=== PATIENT | female | born 1965 | race Caucasian/White ===

== ENCOUNTER 2017-03-16 11:55 | Outpatient (CLI) | payer BC ==
--- NOTE | 2017-03-20 07:55 | Mammography Report ---
DIGITAL BILATERAL SCREENING MAMMOGRAM: 03/16/2017 CLINICAL HISTORY: A 51-year-old female in for routine screening mammogram. Patient has no family hi story of breast cancer. Patient has no prior breast surgeries. COMPARISON: 09/01/2007, 11/02/2008, 11/15/2009, 11/11/2010, 11/24/2011, 11/19/2012, 11/07/2013, 12/26 TECHNIQUE: Craniocaudad and oblique lateral views of each breast were obtained with [employer] digital mammography. Axillary and exaggerated craniocaudad views were obtained to compliment the examination. FINDINGS: Moderately dense breasts are noted bilaterally especially in the upper outer quadrant of e ach breast. No significant clusters of calcification are seen. No significant masses are noted. No change is se en. IMPRESSION: BREASTS APPEAR RADIOGRAPHICALLY BENIGN. BIRADS CATEGORY 1 - NEGATIVE. RECOMMENDATIONS: Annual bilateral screening mammography. STANDARD QUALIFYING STATEMENTS 1. This examination was reviewed with the aid of Computer-Aided Detection (CAD). 2. A negative or benign imaging report should not delay biopsy if clinically suspicious findings are present. Consider surgical consultation if warranted. More than 5% of cancers are not identified by i idalia. 3. Dense breasts may obscure an underlying neoplasm. JOB #: [id number] EXT JOB #:[id number]
== END 2017-03-16 11:56 | disposition home or self-care (01) ==
LOC: DI.N 11:55
PROVIDERS: ATTEND Family Medicine
DX: Z12.31 Encounter for screening mammogram for malignant neoplasm of breast (principal)
CPT/HCPCS: 77067

== ENCOUNTER 2017-05-15 09:33 | Outpatient (CLI) | payer BC | END 2017-05-15 09:34 | disposition home or self-care (01) | LOC: LAB.WCP 09:33 | PROVIDERS: ATTEND Family Medicine | DX: N39.0 Urinary tract infection, site not specified (principal) | CPT/HCPCS: 87086 ==

== ENCOUNTER 2017-07-06 13:44 | Outpatient (CLI) | payer BC ==
[2017-07-06 19:27] LABS: BILIRUBIN,URINE NEGATIVE (NEGATIVE); PH,URINE 5.5 PH (5.0-7.5)
[2017-07-06 19:37] LABS: UR CULTURE IF IND NOT INDICATED; WBC,URINE 0-3 /HPF (0-5)
== END 2017-07-06 13:45 | disposition home or self-care (01) ==
LOC: LAB.WCP 13:44
PROVIDERS: ATTEND Family Medicine
DX: R10.2 Pelvic and perineal pain (principal)
CPT/HCPCS: 81001; 87086

== ENCOUNTER 2017-07-13 11:02 | Outpatient (CLI) | payer BC ==
--- NOTE | 2017-07-14 13:37 | Ultrasound Report ---
PELVIC ULTRASOUND: 07/13/2017 CLINICAL HISTORY: Irregular menses, history of fibroids. COMPARISON: 08/07/2014. TECHNIQUE: Real time scanning by the glass technician with saved static images were reviewed. Transabdominal approach with global evaluation. Endovaginal scanning for detailed assessment of the uterus and ovaries. FINDINGS: The uterus measures 20 x 11.1 x 15.3 cm, volume of 1776 cubic centimeters. The previous measurements were 14.9 x 10 x 5.5 cm. Multiple fibroids are present. These include a 14.5 x 10.5 x 11.3 cm right- sided complex-appearing fibroid with a central cystic or necrotic component. The previous measurements were 7.1 x 6.4 x 5.7 cm. A left mid body fibroid measures 5.5 x 5 x 5.2 cm, previously 4.7 x 4.4 x 4.4 cm. A left superior fundal partially calcified fibroid measures 6.1 x 3.8 x 6.1 cm, previously 7.2 x 6.9 x 5 cm. The right ovary is not seen. The left ovary measures 3.6 x 2.2 x 2.4 cm, volume of 9.9 cubic centimeters, and contains an 1.8 x 1.8 x 1.3 cm in diameter cyst. No free fluid is present. IMPRESSION: PROGRESSIVE ENLARGEMENT OF A MYOMATOUS UTERUS COMPARED WITH 2013, CURRENT UTERINE VOLUME APPROXIMATELY 1776 [address]ERS. JOB #: [id number] EXT JOB #: [id number] [facility]
== END 2017-07-13 11:03 | disposition home or self-care (01) ==
LOC: DI 11:02
PROVIDERS: ATTEND Family Medicine
DX: R10.2 Pelvic and perineal pain (principal); N85.2 Hypertrophy of uterus; D25.9 Leiomyoma of uterus, unspecified
CPT/HCPCS: 76830; 76856

== ENCOUNTER 2018-03-17 10:14 | Outpatient (CLI) | payer OTHER ==
--- NOTE | 2018-03-18 13:50 | Mammography Report ---
DIGITAL SCREENING MAMMOGRAM: 03/17/2018 CLINICAL INDICATION: A 52-year-old for screening. COMPARISON: 02/2017, 12/2015, 10/2013, 10/2012, 10/2011, 10/2010, 10/2009. TECHNIQUE: Routine CC and MLO projections as well as bilateral laterally exaggerated craniocaudal views were obtained of the breasts. FINDINGS: Scattered fibroglandular tissue is present within the breasts. There are no dominant masses, suspicious microcalcifications, or secondary signs of malignancy. In comparison to the previous studies, there are no significant changes. IMPRESSION: NO MAMMOGRAPHIC EVIDENCE OF MALIGNANCY. NO SIGNIFICANT INTERVAL CHANGES. RECOMMENDATION: Screening mammography is recommended annually. BIRADS CATEGORY 1 - NEGATIVE. STANDARD QUALIFYING STATEMENTS: 1. This examination was reviewed with the aid of Computed-Aided Detection (CAD). 2. A negative or benign imaging report should not delay biopsy if clinically suspicious findings are present. Consider surgical consultation if warranted. More than 5% of cancers are not identified by imaging. 3. Dense breasts may obscure an underlying neoplasm. TD: 03/18/2018 13:41
== END 2018-03-17 10:15 | disposition home or self-care (01) ==
LOC: DI.N 10:14
PROVIDERS: ATTEND Family Medicine
DX: Z12.31 Encounter for screening mammogram for malignant neoplasm of breast (principal)
CPT/HCPCS: 77067

== ENCOUNTER 2018-06-12 21:00 | Emergency (ER) | payer OTHER ==
[2018-06-12 21:17] VITALS: BP 171/80
[2018-06-12] MEDS ORDERED: ACETAMINOPHEN 325 MG TABLET PO STA (21:33)
--- NOTE | 2018-06-12 22:20 | XRAY Report ---
Procedure Date: 06/12/2018 Accession Number: [id number] / [id number] Procedure: XR - Forearm LT CPT Code: FULL RESULT: EXAM: LEFT FOREARM RADIOGRAPHY EXAM DATE: 06/12/2018 10:04 PM. CLINICAL HISTORY: L wrist pain, s/p fall. COMPARISON: None. TECHNIQUE: 2 views. FINDINGS: Bones: There is a mildly comminuted impacted intra-articular fracture involving the distal radius. A nondisplaced fractures also seen involving the tip of the ulnar styloid process. Joints: Normal. No effusions or subluxations in the visualized wrist or elbow joints. Soft Tissues: Normal. No soft tissue swelling. IMPRESSION: Mildly impacted and comminuted intra-articular distal radius fracture. Tip of ulnar styloid process fracture. RADIA
--- NOTE | 2018-06-12 22:26 | XRAY Report ---
Procedure Date: 06/12/2018 Accession Number: [id number] / [id number] Procedure: XR - Wrist 4 View LT CPT Code: FULL RESULT: EXAM: LEFT WRIST RADIOGRAPHY EXAM DATE: 06/12/2018 10:04 PM. CLINICAL HISTORY: L wrist pain, s/p fall. COMPARISON: None. TECHNIQUE: 4 views. FINDINGS: Bones: There is a comminuted fracture involving the articular margins of the distal radius with mild displacement of fracture fragments. No carpal bone fracture. There is a fracture involving the tip of the ulnar styloid process. Joints: Normal. No subluxations. Soft Tissues: Normal. No soft tissue swelling. IMPRESSION: Mildly comminuted and displaced intra-articular distal radial fracture. Tip of ulnar styloid process fracture. RADIA
--- NOTE | 2018-06-12 22:33 | ED Physician Documentation ---
PD HPI UPPER EXT INJURY - Stated complaint Stated Complaint: LT WRIST/ARM PX - Chief complaint Chief Complaint: Ext Problem - History obtained from History obtained from: Patient - History of Present Illness Location: Left, Forearm, Wrist Type of injury: Fall Where injury occurred: Home Timing - onset: How many hours ago (1) Timing - duration: Hours (1) Timing - details: Abrupt onset Pain level max: 6 Pain level now: 5 Improved by: Rest, Ice, Immobilization Worsened by: Moving, Palpating Associated symptoms: Swelling. No: Weakness, Numbness, Tingling, Discolored Contributing factors: No: Anticoagulated, Prior ortho surgery Recently seen: Not recently seen - Additonal information Additional information: Patient states that she tripped and fell. States that she twisted her right ankle and landed. No longer has any pain in the right ankle and is ambulating without difficulty. Still has continued pain in the left wrist. She is right- handed. Patient did not strike her head. No loss of consciousness. Review of Systems Constitutional: denies: Fever Throat: denies: Sore throat Cardiac: denies: Chest pain / pressure GI: denies: Vomiting Musculoskeletal: denies: Neck pain, Back pain Neurologic: denies: Focal weakness, Numbness, Headache, Head injury, LOC PD PAST MEDICAL HISTORY - Past Medical History Past Medical History: No - Past Surgical History Past Surgical History: No - Present Medications Home Medications: Ambulatory Orders Medication Instructions Recorded Confirmed No Known Home Medications [No 06/12/18 06/12/18 Known Home Medications] - Allergies Allergies/Adverse Reactions: Allergies Allergy/AdvReac Type Severity Reaction Status Date / Time codeine Allergy Emesis Verified 06/12/18 21:12 shellfish derived Allergy Anaphylaxis Verified 06/12/18 21:12 - Social History Does the pt smoke?: No Smoking Status: Never smoker Does the pt drink ETOH?: No Does the pt have substance abuse?: No - Immunizations Immunizations are current?: Yes - POLST Patient has POLST: No PD ED PE NORMAL - Vitals Vital signs reviewed: Yes - General General: Alert and oriented X 3, No acute distress - HEENT HEENT: Atraumatic, PERRL, Moist mucous membranes, Pharynx benign - Neck Neck: Supple, no meningeal sign, No bony TTP - Cardiac Cardiac: RRR, No murmur, Strong equal pulses - Respiratory Respiratory: No respiratory distress - Back Back: No spinal TTP - Derm Derm: Warm and dry - Extremities Extremities: Other (Deformity noted at the left wrist. Mild swelling. No snuffbox tenderness. Also has tenderness at the mid forearm. No deformity.) - Neuro Neuro: Alert and oriented X 3 - Psych Psych: Normal mood, Normal affect Results - Vitals Vitals: Vital Signs - 24 hr 06/12/18 21:10 Temperature 36.9 C Heart Rate 86 Respiratory 16 Rate Blood Pressure 171/80 H O2 Saturation 99 Oxygen O2 Source Room air - Rads (name of study) Left wrist x-ray Radiology: Prelim report reviewed, EMP read contemporaneously, See rad report ( Mildly comminuted and displaced intra-articular distal radial fracture. Tip of ulnar styloid process fracture. ) Left forearm x-ray Radiology: Prelim report reviewed, EMP read contemporaneously, See rad report ( Mildly comminuted and displaced intra-articular distal radial fracture. Tip of ulnar styloid process fracture. ) Procedures - Splint (location) L wrist Splint applied by: Physician, Tech Type of splint: Fiberglass, Long arm, Sugar tong Other: Patient tolerated well, No complications, Neurovascular intact, Good alignment, Sling provided PD MEDICAL DECISION MAKING - ED course Complexity details: reviewed results, re-evaluated patient, considered differential, d/w patient, d/w family ED course: Patient with a comminuted left distal radius fracture and an ulnar styloid fracture. Declines any pain medication here for home. Splint applied. We will have her follow-up with orthopedics for further care. Neurovascularly intact. Patient and family counseled regarding signs and symptoms for which I believe and urgent re-evaluation would be necessary. Patient with good understanding of and agreement to plan and is comfortable going home at this time This document was made in part using voice recognition software. While efforts are made to proofread this document, sound alike and grammatical errors may occur. - Sepsis Event Vital Signs: Vital Signs - 24 hr 06/12/18 21:10 Temperature 36.9 C Heart Rate 86 Respiratory 16 Rate Blood Pressure 171/80 H O2 Saturation 99 Oxygen O2 Source Room air Departure - Departure Disposition: 01 Home, Self Care Clinical Impression: Distal radius fracture, left Qualifiers: Encounter type: initial encounter Fracture type: closed Fracture morphology: unspecified fracture morphology Qualified Code(s): S52.502A - Unspecified fracture of the lower end of left radius, initial encounter for closed fracture Condition: Good Instructions: ED Fx Upper Ext Follow-Up: Mini Hinojosa MD [Primary Care Provider] - [facility] [Provider Group] - Within 1 week Comments: You are to follow-up with orthopedics for further evaluation and care. Return if you worsen. Keep the splint on until released by orthopedics. Discharge Date/Time: 06/12/18 22:48
== END 2018-06-12 22:48 | disposition home or self-care (01) ==
LOC: ED 21:00
DX: S52.572A Other intraarticular fracture of lower end of left radius, initial encounter for closed fracture (principal); W01.0XXA Fall on same level from slipping, tripping and stumbling without subsequent striking against object, initial encounter; Y92.009 Unspecified place in unspecified non-institutional (private) residence as the place of occurrence of the external cause
CPT/HCPCS: 29105; 73090; 73110; 99283; A9270

== ENCOUNTER 2020-01-08 07:09 | Outpatient (CLI) | payer OTHER ==
--- NOTE | 2020-01-08 23:29 | Ultrasound Report ---
Reason: LOWER ABD PAIN Procedure Date: 01/08/2020 Accession Number: [id number] / [id number] Procedure: US - Abdomen Complete CPT Code: Final Report FULL RESULT: EXAM: ABDOMEN ULTRASOUND EXAM DATE: 01/08/2020 08:18 AM. CLINICAL HISTORY: LOWER ABD PAIN. COMPARISON: None. TECHNIQUE: Real-time scanning was performed with static images obtained. FINDINGS: Liver: Diffuse steatosis with area of focal fatty sparing. Length is 17.1 cm. Main portal vein flow: Hepatopetal. Gallbladder: No stones, wall thickening, or sonographic Smith's sign. Biliary System: Common bile duct measures 4 mm. No intrahepatic ductal dilatation. Pancreas: The visualized portions are unremarkable. Kidneys: Right: 9.8 cm longitudinally. No contour-deforming mass, shadowing stones, or hydronephrosis. Left: 9.4 cm longitudinally. No contour-deforming mass, shadowing stones, or hydronephrosis. Spleen: 9.5 cm Imaged portions of the aorta and IVC are unremarkable. IMPRESSION: No acute sonographic abnormalities. RADIA
== END 2020-01-08 07:10 | disposition home or self-care (01) ==
LOC: DI 07:09
PROVIDERS: ATTEND Physician Assistant Medical
DX: R10.9 Unspecified abdominal pain (principal)
CPT/HCPCS: 76700

== ENCOUNTER 2021-01-09 15:01 | Outpatient (CLI) | payer OTHER ==
--- NOTE | 2021-01-10 14:17 | Mammography Report ---
BILATERAL DIGITAL SCREENING MAMMOGRAM 3D/2D: 01/09/2021 CLINICAL: Routine screening. Comparison is made to exams dated: 03/17/2018 mammogram, 03/16/2017 mammogram, and 01/23/2016 mammogram - [facility]. There are scattered fibroglandular elements in both breasts. No significant masses, calcifications, or other findings are seen in either breast. There has been no significant interval change. IMPRESSION: NEGATIVE There is no mammographic evidence of malignancy. A 1 year screening mammogram is recommended. This exam was interpreted at Station ID: [id number]. NOTE: For mammograms, a report in lay terms will be sent to the patient. Approximately 15% of breast malignancies will not be visualized mammographically. In the management of a palpable breast mass, a negative mammogram must not discourage biopsy of a clinically suspicious lesion. Electronically Signed By: Mary estrada/penrad:01/09/2021 17:27:47 ACR BI-RADS Category 1: Negative 3341F PARENCHYMAL PATTERN: (A) - The breast(s) demonstrate(s) scattered fibroglandular densities. BI-RADS CATEGORY: (1) - 1 RECOMMENDATION: (ANNUAL) - Recommend routine annual screening mammography. [id number] 1 year screening LATERALITY: (B)
== END 2021-01-09 15:02 | disposition home or self-care (01) ==
LOC: DI.N 15:01
PROVIDERS: ATTEND Physician Assistant Medical
DX: Z12.31 Encounter for screening mammogram for malignant neoplasm of breast (principal)

== ENCOUNTER 2022-10-15 13:36 | Outpatient (CLI) | payer OTHER ==
--- NOTE | 2022-10-16 11:57 | Mammography Report ---
BILATERAL DIGITAL SCREENING MAMMOGRAM 3D/2D: 10/15/2022 CLINICAL: Routine screening. Comparison is made to exams dated: 01/09/2021 mammogram, 03/17/2018 mammogram, and 03/16/2017 mammogram - [facility]. There are scattered areas of fibroglandular density in both breasts (category b / 25%-50% glandular t issue). No significant masses, calcifications, or other findings are seen in either breast. There has been no significant interval change. IMPRESSION: NEGATIVE There is no mammographic evidence of malignancy. A 1 year screening mammogram is recommended. Based on the Tyrer Cuzick model (a risk assessment model) the patients lifetime risk is 6.4% and her 10 year risk is 2.2%. According to the ACR, ACS, and NCCN guidelines, an annual breast MRI exam anton g with mammogram is recommended if the patients lifetime risk is 20% or greater. This exam was interpreted at Station ID: [id number]. NOTE: For mammograms, a report in lay terms will be sent to the patient. Approximately 15% of breast malignancies will not be visualized mammographically. In the management of a palpable breast mass, a negative mammogram must not discourage biopsy of a clinically suspicious lesion. Electronically Signed By: Jonathan dick/michael:10/15/2022 14:41:41 ACR BI-RADS Category 1: Negative 3341F PARENCHYMAL PATTERN: (A) - The breast(s) demonstrate(s) scattered fibroglandular densities. BI-RADS CATEGORY: (1) - 1 RECOMMENDATION: (ANNUAL) - Recommend routine annual screening mammography. [id number] 1 year screening LATERALITY: (B)
== END 2022-10-15 13:37 | disposition home or self-care (01) ==
LOC: DI.N 13:36
PROVIDERS: ATTEND Physician Assistant
DX: Z12.31 Encounter for screening mammogram for malignant neoplasm of breast (principal)

== ENCOUNTER 2023-03-11 10:21 | Day surgery (SDC) | payer OTHER ==
[2023-03-11] MEDS: LACTATED RINGERS 1,000 ML IV ONE ×2 (10:36)
--- NOTE | 2023-03-11 11:17 | ANESTHESIA ---
Pre-Anesthesia VS, & Labs - Diagnosis screening - Procedure colonoscopy Vital Signs: Temp Pulse Resp BP Pulse Ox O2 Flow Rate 36.5 C 85 18 161/96 H 98 03/11/23 10:38 03/11/23 10:38 03/11/23 10:38 03/11/23 10:38 03/11/23 10:38 Height: 5 ft 10 in Weight (kg): 70.7 kg Body Mass Index: 22.4 BMI Classification: Normal - NPO Other (prep as directed) - Is Patient ?: No Home Medications and Allergies Home Medications: Ambulatory Orders Multivitamin with Minerals [Multivitamins with Minerals] 1 each PO DAILY 03/10/23 Multivitamin with Minerals [Multivitamins with Minerals] 1 each PO DAILY 0 03/10/23 Allergies/Adverse Reactions: Allergies Allergy/AdvReac Type Severity Reaction Status Date / Time codeine Allergy Emesis Verified 06/12/18 21:12 shellfish derived Allergy Anaphylaxis Verified 06/12/18 21:12 Anes History & Medical History - Anesthetic History Anesthesia Complications: reports: No previous complications - Medical History Cardiovascular: reports: None Pulmonary: reports: None Gastrointestinal: reports: None Urinary: reports: None Musculoskeletal: reports: None Endocrine/Autoimmune: reports: None Skin: reports: None Smoking Status: Never smoker - Surgical History General: reports: Colonoscopy Gynecologic: reports: Hysterectomy Exam General: Alert, Oriented x3 Dental: WNL Mouth Openin Fingerbreadth Neck Mobility: Normal Mallampati classification: II Thyromental Distance: 4-6 cm Respiratory: Lungs clear Cardiovascular: Regular rate, Normal S1, Normal S2 Plan Anesthesia Type: Total IV Consent for Procedure(s) Verified and Reviewed: Yes Code Status: Attempt Resuscitation ASA classification: 1-Healthy patient Is this case an emergency?: No
[2023-03-11] MEDS ORDERED: PROPOFOL 500 MG/50 ML 500 MG/50 ML VIAL ONE (11:22)
[2023-03-11] MEDS ORDERED: PROPOFOL 200 MG/20 ML VIAL IVP ONE (12:16)
[2023-03-11] MEDS: LACTATED RINGERS 250 ML IV ONE (12:30)
[2023-03-11 12:59] VITALS: BP 139/78
--- NOTE | 2023-03-11 13:34 | ANESTHESIA POST OP EVALUATION ---
Anesthesia Post Eval - Post Anesthesia Eval Vitals: Last Vital Signs Temp 36.6 C 03/11/23 12:57 Pulse 66 03/11/23 12:57 Resp 16 03/11/23 12:57 BP 139/78 H 03/11/23 12:57 Pulse Ox 98 03/11/23 12:57 O2 Flow Rate CV Function Including HR & BP: Stable Pain Control: Satisfactory Nausea & Vomiting: Negative Mental Status: Baseline Respiratory Status: Airway Patent Hydration Status: Satisfactory Anesthesia Complications: None
== END 2023-03-11 10:22 | disposition home or self-care (01) ==
LOC: SDS 10:21
PROVIDERS: ATTEND Surgery
PROC: 0DBL8ZZ Excision of Transverse Colon, Via Natural or Artificial Opening Endoscopic (ICD-10-PCS; 2023-03-11)
PROC: 0DBP8ZX Excision of Rectum, Via Natural or Artificial Opening Endoscopic, Diagnostic (ICD-10-PCS; 2023-03-11)
PROC: 0DBM8ZX Excision of Descending Colon, Via Natural or Artificial Opening Endoscopic, Diagnostic (ICD-10-PCS; principal; 2023-03-11 11:30)
DX: Z12.11 Encounter for screening for malignant neoplasm of colon (principal); D12.3 Benign neoplasm of transverse colon; D12.4 Benign neoplasm of descending colon; K62.1 Rectal polyp; K64.1 Second degree hemorrhoids
CPT/HCPCS: 45380; 45385; J7120

== ENCOUNTER 2023-04-07 07:43 | Outpatient (CLI) | payer OTHER ==
--- NOTE | 2023-04-07 15:55 | XRAY Report ---
PROCEDURE: Foot 3 View LT INDICATIONS: L FOOT PAIN TECHNIQUE: 3 views of the foot were acquired. COMPARISON: X-ray foot 03/16/2017 FINDINGS: Bones: No fractures or dislocations. No suspicious bony lesions. Soft tissues: No suspicious soft tissue calcifications or masses. IMPRESSION: No visualized acute fracture or dislocation. However, occult injury cannot be excluded. Recommend zay rt interval imaging follow-up in 7-10 days as clinically indicated for additional evaluation. Reviewed by: Monica Castillo MD on 04/07/2023 3:54 PM PDT Approved by: Monica Castillo MD on 04/07/2023 3:54 PM PDT Station ID: [id number]
== END 2023-04-07 07:44 | disposition home or self-care (01) ==
LOC: DI.N 07:43
PROVIDERS: ATTEND Physician Assistant
DX: M79.672 Pain in left foot (principal)

== ENCOUNTER 2023-11-02 10:00 | Outpatient (CLI) | payer OTHER ==
--- NOTE | 2023-11-02 16:10 | XRAY Report ---
PROCEDURE: Hand 3+V RT INDICATIONS: PAIN AT 1ST DIGIT MCP,METACARPAL ON RIGHT HAND TECHNIQUE: 3 views of the hand(s) acquired. COMPARISON: None. FINDINGS: Bones: No fractures or dislocations. No suspicious bony lesions. Soft tissues: No suspicious soft tissue calcifications or masses. No radiopaque foreign body. IMPRESSION: No visualized acute fracture or dislocation. However, occult injury cannot be excluded. Recommend zay rt interval imaging follow-up in 7-10 days as clinically indicated for additional evaluation. Reviewed by: Monica Castillo MD on 11/02/2023 4:08 PM [facility] Approved by: Monica Castillo MD on 11/02/2023 4:08 PM [facility] Station ID: [id number]
== END 2023-11-02 10:01 | disposition home or self-care (01) ==
LOC: DI 10:00
PROVIDERS: ATTEND Physician Assistant
DX: M79.641 Pain in right hand (principal)

== ENCOUNTER 2023-11-05 09:25 | Outpatient (CLI) | payer OTHER ==
--- NOTE | 2023-11-06 12:48 | Mammography Report ---
BILATERAL DIGITAL DIAGNOSTIC MAMMOGRAM 3D/2D: 11/05/2023 CLINICAL: Right nipple pain, Due for bilateral. Comparison is made to exams dated: 10/15/2022 mammogram, 01/09/2021 mammogram, and 03/17/2018 mammogra m - [facility]. There are scattered areas of fibroglandular density in both breasts (category b / 25%-50% glandular t issue). No significant masses, calcifications, or other findings are seen in either breast. IMPRESSION: NEGATIVE There is no abnormality seen in the right breast to correspond with the pain in the sub-areolar depth , however, clinical followup is recommended. There is no mammographic evidence of malignancy. Return to annual mammogram screening schedule is rec ommended. Based on the Tyrer Cuzick model (a risk assessment model) the patients lifetime risk is 6.3% and her 10 year risk is 2.3%. According to the ACR, ACS, and NCCN guidelines, an annual breast MRI exam anton g with mammogram is recommended if the patients lifetime risk is 20% or greater. This exam was interpreted at Station ID: [id number]. NOTE: For mammograms, a report in lay terms will be sent to the patient. Approximately 15% of breast malignancies will not be visualized mammographically. In the management of a palpable breast mass, a negative mammogram must not discourage biopsy of a clinically suspicious lesion. Electronically Signed By: Jonathan dick/michael:11/05/2023 12:03:53 letter sent: No_Letter ACR BI-RADS Category 1: Negative 3341F PARENCHYMAL PATTERN: (A) - The breast(s) demonstrate(s) scattered fibroglandular densities. BI-RADS CATEGORY: (1) - 1 Mammogram [id number] return to screening LATERALITY: (B)
== END 2023-11-05 09:26 | disposition home or self-care (01) ==
LOC: DI 09:25
PROVIDERS: ATTEND Physician Assistant
DX: N64.4 Mastodynia (principal); R92.323 Mammographic fibroglandular density, bilateral breasts

== ENCOUNTER 2024-04-24 07:02 | Outpatient (CLI) | payer OTHER ==
--- NOTE | 2024-04-24 14:48 | Ultrasound Report ---
PROCEDURE: Soft Tissue Head or Neck INDICATIONS: L FOREHEAD MASS TECHNIQUE: Real-time scanning was performed of the left fourth, with image documentation. COMPARISON: None FINDINGS: Targeted ultrasound of the left forehead demonstrates a fat-containing, encapsulated mass measuring 1 .8 x 0.5 x 1.6 cm. IMPRESSION: Forehead lipoma measuring 1.8 cm in the region of concern. Reviewed by: Sumit Jarrell MD on 04/24/2024 2:47 PM PDT Approved by: Sumit Jarrell MD on 04/24/2024 2:47 PM PDT Station ID: [id number]
== END 2024-04-24 07:03 | disposition home or self-care (01) ==
LOC: DI 07:02
PROVIDERS: ATTEND Internal Medicine
DX: D17.0 Benign lipomatous neoplasm of skin and subcutaneous tissue of head, face and neck (principal)